=== PATIENT | male | born 1960 | race Caucasian/White ===

== ENCOUNTER 2023-04-11 08:51 | Emergency (ER) | payer OTHER, SELFPAY ==
--- NOTE | ~2023-04-11 | XR_ITS ---
EXAMINATION: XR forearm LT 2V INDICATION: Left forearm swelling TECHNIQUE: Two views of the left forearm are obtained. COMPARISON: None available FINDINGS: Bone alignment is normal. There is no fracture. There is mild osteoarthritis of the elbow. There is deformity of the scaphoid which likely reflects prior injury. Moderate osteoarthritis is not ed at the radiocarpal articulation. The soft tissues are unremarkable. IMPRESSION: 1. No acute osseous abnormality. Reviewed, dictated and finalized at location B. COMMENTATOR
[2023-04-11 09:00] VITALS: BP 116/72; PULSE 82; RESP 16; TEMP 36.1; O2SAT 100
--- NOTE | 2023-04-11 09:47 | ED.EXTPRO ---
HPI - Extremity Problem General Chief complaint: Extremity Problem,Nontraumatic Stated complaint: Left Hand And Arm Swelling Time Seen by Provider: 04/11/23 09:48 Source: patient, RN notes reviewed and old records reviewed Mode of arrival: ambulatory Limitations: no limitations History of Present Illness HPI Narrative: 62 year old male presents to express care with complaints helping to build a fire pit on Sunday lifting cement blocks all day with noted pain and swelling on Sunday to his left elbow and down to his forearm and hand. Patient reports that he has been taking Excedrin and applying ice to his left hand and elbow.Patient reports that his pain is throbbing and he rates his pain as 6/10. Patient is able to move all finger on own power but with some discomfort, pulses strong to left arm. MD Complaint: extremity pain and extremity swelling Onset (ago): day(s) (4 days) Location: left and upper extremity Severity scale (1-10): 6 Quality: other (throbbing) Related Data Home Medications Medication Instructions Recorded Confirmed atorvastatin 20 mg tablet 20 mg PO DAILY 04/11/23 04/11/23 budesonide-formoterol HFA 80 2 puff inhalation BID 04/11/23 04/11/23 mcg-4.5 mcg/actuation aerosol inhaler (Symbicort) carvedilol 25 mg tablet 25 mg PO DAILY 04/11/23 04/11/23 lisinopril 20 mg tablet 20 mg PO DAILY 04/11/23 04/11/23 Allergies Allergy/AdvReac Type Severity Reaction Status Date / Time No Known Allergies Allergy Verified 04/11/23 09:48 Review of Systems Review of Systems: CONSTITUTIONAL: Denies fever, chills, or sweats. CARDIOVASCULAR: Denies chest pain, palpitations, or edema. RESPIRATORY: Denies cough or dyspnea. SKIN: Denies rash or itching. Denies lacerations or abrasions MUSCULOSKELETAL: Reports pain and swelling to his left elbow down to wrist and hand since Sunday after lifting on create blocks NEUROLOGIC: Denies numbness, or weakness. All systems reviewed & are unremarkable except as noted in HPI and below PMFSH Past Medical History Medical History (Updated 04/12/23 @ 16:15 by Yuly Victor NP) Hyperlipidemia Hypertension Osteoarthritis Surgical History Surgical History (Updated 04/12/23 @ 16:15 by Yuly Victor NP) Mechanical heart valve present Social History Social History (Updated 04/12/23 @ 16:16 by Yuly Victor NP) Smoking packs per day: 1 Smoking cigarettes per day: 20.0 Smoking status: Current every day smoker Tobacco type: cigarettes Comments At time of signature, agree with nursing past medical, surgical, social and family history. There is no relevant family history pertinent to the presenting complaint Exam Narrative: GENERAL: Well-appearing, well-nourished, and in no acute distress. HEAD: Normocephalic, atraumatic. EYES: PERRLA and EOMI. ENT: Nares clear, no rhinorrhea or epistaxis. Mucous membranes moist. TMs normal throat pink with no lesions head NECK: Supple. No lymphadenopathy CHEST: Clear to auscultation. No respiratory distress. No acute cough SaO2 100% on room air HEART: Regular rate and rhythm. No murmur heard. Normal peripheral pulses. ABDOMEN: Soft, nontender, nondistended, normal active bowel sounds. EXTREMITIES: Normal range of motion. No edema. Exception noted to left forearm and hand which is swollen and painful with full movement but with discomfort of hand especially, pulses palpable of adequate quality, nail beds travis briskly. SKIN: Warm, dry, no rash. NEURO: No focal deficits. Alert and oriented x3. Course Course Level of Care: Express Care Visit Vital Signs Vital signs: Vital Signs Temperature 36.1 C L 04/11/23 09:00 Pulse Rate 82 04/11/23 09:00 Respiratory Rate 16 04/11/23 09:00 Blood Pressure 116/72 04/11/23 09:00 Pulse Oximetry 100 04/11/23 09:00 Oxygen Delivery Room Air 04/11/23 09:00 Temperature 36.1 C L 04/11/23 09:00 Pulse Rate 82 04/11/23 09:00 Respiratory Rate 16
== END 2023-04-11 10:45 | disposition home or self-care (01) ==
PROVIDERS: Emergency Provider Registered Nurse; PCP Nurse Practitioner
DX: R22.32 Localized swelling, mass and lump, left upper limb (principal); M25.522 Pain in left elbow; F17.210 Nicotine dependence, cigarettes, uncomplicated; E78.5 Hyperlipidemia, unspecified; I10 Essential (primary) hypertension; M19.90 Unspecified osteoarthritis, unspecified site; Z95.2 Presence of prosthetic heart valve
CPT/HCPCS: 73090; 99203; G0463